=== PATIENT | female | born 1980 | race Caucasian/White ===

== ENCOUNTER → 2017-12-11 | Outpatient (CLI) | payer BC | END | disposition home or self-care (01) | LOC: PLD 10:59 → LAB SHORT 10:59 | DX: D22.72 Melanocytic nevi of left lower limb, including hip (principal); D22.71 Melanocytic nevi of right lower limb, including hip; D22.61 Melanocytic nevi of right upper limb, including shoulder; D48.5 Neoplasm of uncertain behavior of skin | CPT/HCPCS: 88305 ==

== ENCOUNTER → 2019-06-05 | Outpatient (CLI) | payer BC | END | disposition home or self-care (01) | LOC: LAB SHORT 10:05 → LAB 10:05 | DX: L02.414 Cutaneous abscess of left upper limb (principal) | CPT/HCPCS: 87070; 87077; 87186; 87205 ==